=== PATIENT | male | born 1995 | race Caucasian/White ===

== ENCOUNTER 2017-11-12 21:36 | Emergency (ER) | payer SELFPAY ==
[2017-11-12 22:00] VITALS: BP 124/58
--- NOTE | 2017-11-12 22:31 | EDM.PDOC ---
ED HPI GENERAL MEDICAL PROBLEM - General Chief Complaint: Back Pain or Injury Stated Complaint: LOWER BACK PAIN, RT SIDE, FOOT NUMBNESS Time Seen by Provider: 11/12/17 22:00 Source of Information: Reports: Patient, RN Notes Reviewed History Limitations: Reports: No Limitations - History of Present Illness INITIAL COMMENTS - FREE TEXT/NARRATIVE: Drove himself here Chief complaint Low back pain, lightheadedness History of present illness 22-year-old male with no medical or surgical history, however he did start having some back pain a couple of years ago, seen in the emergency room at [facility] given some pain medications that didn't help, he was better in a week and a half anyways. 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 Occasionally he is on the road stalling unless he was today. While driving down the highway, this afternoon, he started having more severe sharp stabs of pain which she's had before. But today this was associated with some lightheadedness he felt like he might pass out he veered off the road a bit. After that he had his coworker drive the car and he didn't have any recurrence of that. He also had about 20 minutes of numbness in the right lower leg the top of the right foot and probably all the toes. That is gone now, hasn' t had that before. Back pain is always been in the right low back and does not radiate to the leg. No history of fever No history of urinary or bowel incontinence No loss of foot or leg strength, no loss of time from work because of back pain Distant family members with back pain - Related Data Allergies Allergy/AdvReac Type Severity Reaction Status Date / Time amoxicillin Allergy Cannot Verified 11/12/17 21:49 Remember Penicillins Allergy Cannot Verified 11/12/17 21:49 Remember Home Meds: Home Meds Cyclobenzaprine [Flexeril] 10 mg PO TID PRN #15 tab 11/12/17 [Rx] Past Medical History - Past Health History Medical/Surgical History: Denies Medical/Surgical History Musculoskeletal History: Reports: Back Pain, Chronic Social & Family History - Tobacco Use Smoking Status *Q: Current Every Day Smoker Years of Tobacco use: 6 Packs/Tins Daily: 0.5 - Caffeine Use Caffeine Use: Reports: Soda - Recreational Drug Use Recreational Drug Use: No ED ROS GENERAL - Review of Systems Review Of Systems: See Below Constitutional: Reports: No Symptoms HEENT: Reports: No Symptoms Respiratory: Reports: No Symptoms Cardiovascular: Reports: No Symptoms GI/Abdominal: Reports: No Symptoms : Reports: No Symptoms Musculoskeletal: Reports: Back Pain. Denies: Leg Pain Skin: Reports: No Symptoms Neurological: Reports: Numbness (Right leg briefly), Difficulty Walking (Moving slowly due to his back pain), Other (Lightheadedness briefly). Denies: Dizziness, Headache, Paresthesia, Syncope, Gait Disturbance Psychiatric: Reports: No Symptoms Hematologic/Lymphatic: Reports: No Symptoms Immunologic: Reports: No Symptoms ED EXAM,LOWER BACK PAIN/INJURY - Physical Exam Exam: See Below Exam Limited By: No Limitations General Appearance: Alert, No Apparent Distress, Other (Healthy-appearing, vital signs normal) Eye Exam: Bilateral Eye: Normal Inspection Throat/Mouth: Normal Inspection Neck: Normal Inspection Respiratory/Chest: No Respiratory Distress, No Accessory Muscle Use Cardiovascular: Normal Peripheral Pulses, Regular Rate, Rhythm Back Exam: Normal Inspection, Muscle Spasm (Right low back), Paraspinal Tenderness (Tender right low back). No: CVA Tenderness (R), CVA Tenderness (L) , Vertebral Tenderness Extremities: Normal Inspection, Normal Range of Motion, Other (Normal strength) Neurological: Alert, Normal Plantar Flexion, No Motor/Sensory Deficits, Other ( Normal reflexes) Skin Exam: Warm, Dry, Intact, Normal Color, No Rash Lymphatic: No Adenopathy Course - Vital Signs Last Recorded V/S: Last Vital Signs Temp 35.9 C 11/12/17 21:47 Pulse 61 11/12/17 21:47 Resp 16 11/12/17 21:47 BP 124/58 L 11/12/17 21:53 Pulse Ox 99 11/12/17 21:47 - Re-Assessments/Exams Free Text/Narrative Re-Assessment/Exam: 11/12/17 22:28 22-year-old male with an episode of back pain over the last 2 weeks, episodes over the last 2 years. Spasms and tenderne in the right low back pain with numbness for about 20 minutes in the right leg today. No warning flags on examination Warning signs discussed Follow-up with primary care if persisting worsening or persistingif Departure - Departure Time of Disposition: 22:29 Disposition: Admitted As Inpatient 66 Condition: Good Clinical Impression: Acute low back pain Qualifiers: Back pain laterality: right Sciatica presence: without sciatica Qualified Code( s): M54.5 - Low back pain - Discharge Information Prescriptions: Cyclobenzaprine [Flexeril] 10 mg PO TID PRN #15 tab PRN Reason: Pain or muscle spasm Instructions: Back Pain, Adult, Back Exercises Referrals: PCP,None [Primary Care Provider] - Forms: ED Department Discharge Additional Instructions: Follow-up with regular physician/clinic if back pain persisting 6 weeks or more , or you are losing time from work Get rechecked promptly if there is loss of strength in the leg, fever, loss of bladder or bowel control
== END 2017-11-12 22:44 | disposition critical access hospital (66) ==
LOC: JP.ED 21:36
DX: M54.5 Low back pain (principal); F17.210 Nicotine dependence, cigarettes, uncomplicated; Z88.1 Allergy status to other antibiotic agents; Z88.0 Allergy status to penicillin
CPT/HCPCS: 99284